=== PATIENT | female | born 1980 | race Caucasian/White ===

== ENCOUNTER → 2017-09-12 | Outpatient (REF) | payer OTHER ==
[2017-09-12 13:28] LABS: BASO # 0.1 10^3/uL (0.0-0.2); BASO % 1.2 % (0.0-1.0); EOS % 0.8 % (0.0-3.0); HEMATOCRIT 37.5 % (36.0-47.0); HEMOGLOBIN 12.2 g/dl (12.0-15.5); IMMATURE GRANULOCYTE % 0.2 % (0-3.0); LYMPH % 42.3 % (24.0-44.0); MEAN CORPUSCULAR HGB CONC 32.5 g/dl (32.0-36.5); MEAN CORPUSCULAR VOLUME 89.3 fl (80.0-96.0); MONO # 0.3 10^3/uL (0.0-0.8); NEUTROPHILS # 2.4 10^3/uL (1.8-7.7); NEUTROPHILS % 49.5 % (36.0-66.0); PLATELET COUNT, AUTOMATED 259 10^3/uL (150-450); RED CELL DISTRIBUTION WIDTH 12.1 % (11.5-14.5); WHITE BLOOD COUNT 4.8 10^3/uL (4.0-10.0)
[2017-09-12 13:46] LABS: FOLATE 9.5 NG/ML; VITAMIN B12 LEVEL 596 PG/ML
[2017-09-12 13:51] LABS: ALBUMIN 3.9 GM/DL (3.2-5.2); ALBUMIN/GLOBULIN RATIO 1.22 (1.00-1.93); ALKALINE PHOSPHATASE 56 U/L (45-117); ALT/SGPT 24 U/L (12-78); ANION GAP 5 MEQ/L (8-16); AST/SGOT 15 U/L (7-37); BLOOD UREA NITROGEN 12 MG/DL (7-18); CALCIUM LEVEL 8.8 MG/DL (8.5-10.1); CARBON DIOXIDE LEVEL 26 MEQ/L (21-32); CHLORIDE LEVEL 110 MEQ/L (98-107); CREATININE FOR GFR 0.86 MG/DL (0.55-1.30); GLOMERULAR FILTRATION RATE > 60.0 (>60); GLUCOSE, FASTING 84 MG/DL (70-100); POTASSIUM SERUM 4.2 MEQ/L (3.5-5.1); RHEUMATOID FACTOR QUANT < 10.0 IU/ML (<15.0); SODIUM LEVEL 141 MEQ/L (136-145); TOTAL PROTEIN 7.1 GM/DL (6.4-8.2)
[2017-09-12 14:14] LABS: ERYTHROCYTE SEDIMENTATION RATE 6 mm/hr (0-20)
[2017-09-12 14:29] LABS: ESTIMATED AVERAGE GLUCOSE 108 MG/DL (60-110); HEMOGLOBIN A1c 5.4 %
[2017-09-13 11:34] LABS: ALBUMIN 4.43 GM/DL (3.29-5.55); ALBUMIN % 62.4 % (55.8-66.1); ALPHA-1-GLOBULIN % 5.2 % (2.9-4.9); ALPHA-1-GLOBULINS 0.37 GM/DL (0.17-0.41); ALPHA-2-GLOBULINS 0.64 GM/DL (0.42-0.99); BETA-1-GLOBULINS 0.47 GM/DL (0.28-0.60); BETA-1-GLOBULINS % 6.6 % (4.7-7.2); BETA-2-GLOBULINS 0.28 GM/DL (0.19-0.55); BETA-2-GLOBULINS % 3.9 % (3.2-6.5); GAMMA GLOBULIN % 12.9 % (11.1-18.8); GAMMA GLOBULINS 0.92 GM/DL (0.65-1.58)
== END ==
LOC: M LABNEURO 09:06
DX: F09 Unspecified mental disorder due to known physiological condition (principal)

== ENCOUNTER 2018-05-21 04:59 | Day surgery (SDC) | payer OTHER ==
[~2018-05-21] VITALS: Ht 175.3 cm; Wt 84.1 kg
[2018-05-21] VITALS (8 sets, daily range): BP systolic 101–115; BP diastolic 57–71
[2018-05-21] MEDS ORDERED: NS 1,000 ML IV SCH (05:09)
[2018-05-21] MEDS ORDERED: EPIP0.3I2 INJ (05:53)
[2018-05-21] MEDS ORDERED: BUPIVACAINE HCL 0.25% 30 ML VIAL As Ordered ONE (06:21)
[2018-05-21] MEDS ORDERED: ROCURONIUM BROMIDE 50 MG/5 ML VIAL As Ordered ONE (06:28)
[2018-05-21] MEDS ORDERED: PROPOFOL 200 MG/20 ML VIAL As Ordered ONE (06:28)
[2018-05-21] MEDS ORDERED: MIDAZOLAM INJ 2 MG/2 ML VIAL (J2250) As Ordered ONE (06:28)
[2018-05-21] MEDS ORDERED: LIDOCAINE 2% INJ 100 MG/5 ML SDV (FOR ANES.) As Ordered ONE (06:28)
[2018-05-21] MEDS ORDERED: fentaNYL 250 MCG/5 ML INJECTION (J3010) As Ordered ONE (06:28)
[2018-05-21] MEDS ORDERED: metroNIDAZOLE/NACL 500MG(5MG/ML)100 ML BAG (S0030) As Ordered ONE (06:45)
[2018-05-21] MEDS ORDERED: ONDANSETRON 4MG/2ML VIAL (J2405) As Ordered ONE (07:18)
[2018-05-21] MEDS ORDERED: dexameTHASONE 4 MG/ML 1ML VIAL (J1100) As Ordered ONE (07:19)
[2018-05-21] MEDS ORDERED: KETOROLAC 60 MG/2 ML VIAL (J1885) As Ordered ONE (07:19)
[2018-05-21] MEDS ORDERED: NEOSTIGMINE 10 MG/10 ML VIAL (J2710) As Ordered ONE (07:46)
[2018-05-21] MEDS ORDERED: GLYCOPYRROLATE INJ 0.2 MG/ML 2 ML VIAL As Ordered ONE (07:46)
[2018-05-21] MEDS ORDERED: fentaNYL 100 MCG/2 ML INJECTION (J3010) As Ordered ONE (08:40)
[2018-05-21] MEDS: fentaNYL 100 MCG/2 ML INJECTION (J3010) IV PRN ×4 (08:41→09:10)
[2018-05-21] MEDS ORDERED: LR 1,000 ML IV SCH (08:45)
[2018-05-21] MEDS ORDERED: PERCOCET 5MG/325MG TAB PO PRN (08:45)
[2018-05-21] MEDS ORDERED: METOCLOPRAMIDE INJ 10MG/2ML VIAL (J2765) IV PRN (08:45)
[2018-05-21] MEDS ORDERED: ONDANSETRON 4MG/2ML VIAL (J2405) IV PRN (08:45)
[2018-05-21] MEDS ORDERED: ACETAMINOPHEN TAB 650MG DOSE (2X325MG) PO PRN (09:00)
[2018-05-21] MEDS: MORPHINE 4 MG/ML 1ML VIAL/SYRINGE (J2270) IV PRN ×2 (10:58→18:54)
[2018-05-21] MEDS: LR 1,000 ML IV SCH ×2 (13:00→16:30)
[2018-05-21] MEDS: IBUPROFEN 600 MG TAB PO PRN (15:23)
[2018-05-21] MEDS: NORCO, ANEXSIA 5/325MG TABLET (HYDROcodone/ACETAMINOPHEN) PO PRN (15:24)
[2018-05-22] VITALS: BP 104/57
[2018-05-22] MEDS: NORCO, ANEXSIA 5/325MG TABLET (HYDROcodone/ACETAMINOPHEN) PO PRN ×2 (00:18→07:44)
[2018-05-22 04:00] VITALS: BP 97/54
[2018-05-22 08:24] VITALS: BP 107/69
[2018-05-22] MEDS: IBUPROFEN 600 MG TAB PO PRN (09:37)
--- NOTE | 2018-05-22 15:18 | RO ---
DATE OF PROCEDURE: 05/21/2018 PREOPERATIVE DIAGNOSIS: Acute appendicitis. POSTOPERATIVE DIAGNOSIS: Acute appendicitis. PROCEDURE PERFORMED: Laparoscopic appendectomy. SURGEON: Dr. Verdugo ANESTHESIA: General. INDICATIONS FOR PROCEDURE: The patient presented to the emergency department with a 1-day history of worsening lower abdominal pain. She also reported some urinary frequency. In the emergency department, she was found to have moderate to marked tenderness in the lower abdomen in the suprapubic region just to the right of the midline. A CT scan had been done at [facility], which showed an inflamed appendix. She is now for laparoscopic appendectomy. OPERATIVE PROCEDURE: The patient was placed under general endotracheal anesthesia. The patient's abdomen was prepped and draped in a sterile fashion. 0.25% Marcaine was infiltrated at the trocar sites as needed. A short supraumbilical midline incision was made and deepened through the fascia under direct vision. The peritoneum was opened bluntly and a John cannula was inserted. The abdomen was insufflated with carbon dioxide gas. The laparoscope was inserted. Initial examination showed a normal-appearing liver and gallbladder. Visualized loops of the small large bowel appeared normal. The patient was tilted to a Trendelenburg position. A 5 mm trocar was placed low in the midline and a second 5 mm trocar was placed in the left lower quadrant. Graspers were inserted. The terminal ileum was rolled to the left and the inflamed appendix was identified extending toward the pelvic brim posterior to the terminal ileum. The appendix was freed from the inflammatory attachments and grasped and elevated. The peritoneal attachments around the base of the appendix were divided using the hook cautery. The mesoappendix was from the appendix and stapled with a vascular load of the linear cutter 45. Two large bleeders were identified along the staple line and these were grasped and controlled with hemoclips. The area was irrigated and hemostasis was ensured. The final filmy attachments around the base of the appendix were divided and the base of the appendix was then stapled with a blue load of the 45 mm stapler. This appeared to give a nice closure with good hemostasis. The appendix was placed in an Endopouch. The pelvis and the right lower quadrant were then irrigated and inspected. Any spilled blood was removed by irrigation and the irrigation was then all removed. Final inspection revealed excellent hemostasis. The patient was returned to a flat position. The abdomen was deflated and the trocars were all removed. The appendix was recovered through the John site and sent for permanent pathology. The fascia at the John site was closed with interrupted simple sutures of #2-0 Vicryl. The skin incisions were closed with #5-0 Vicryl and Steri-Strips. Light dressings were applied. The patient was then awakened in the operating room, extubated and moved to the recovery room in stable condition. CANDELARIO
--- NOTE | 2018-05-22 17:52 | IPN ---
DATE: 05/22/2018 HISTORY: The patient is now 1 day postoperative from a laparoscopic appendectomy for acute appendicitis. She reports that she is doing well this morning. She has some expected discomfort, particularly at the umbilical trocar site. She has been tolerating a regular diet and has been able to ambulate without difficulty. Vital signs show that she has been afebrile with a stable pulse and blood pressure. Intake and output shows 3500 in yesterday with 930 recorded out. Her urine output is good so far today. PHYSICAL EXAMINATION: The patient is alert and appears fairly comfortable. Heart exam shows a regular rhythm. The lungs are clear. The abdomen is soft. Her light dressings are dry, and she has active bowel sounds. IMPRESSION: The patient is doing very well one day postoperative from laparoscopic appendectomy for acute appendicitis. PLAN: The patient will be discharged home today. We discussed pain medication, and she will can take [id number] acetaminophen or ibuprofen as needed and does not feel she needs any narcotic analgesics. She requires no additional antibiotics. She was encouraged to be up and ambulating and doing light activities but should avoid strenuous physical activity for 2 weeks. 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 She can take a diet as tolerated. I advised her that I would normally have her followup in a week to 10 days, but as she lives in the [facility], I will not require her to return for a postoperative visit. If there are any issues, she can call my office and we can try to address things over the phone. She can shower as desired and leave the Steri-Strips on to fall off on their own. CANDELARIO
== END 2018-05-22 10:08 | disposition home or self-care (01) ==
LOC: M ED 04:59 → M SDC 06:25 → M PED 09:21 → M SDC 05-22 10:08
PROVIDERS: ATTEND Surgery
DX: K35.890 Other acute appendicitis without perforation or gangrene (principal)
CPT/HCPCS: 44970; 88304; 93041; 96374; 96376; 99285; J1100; J1885; J2250; J2270; J2405; J2710; J3010

== ENCOUNTER → 2019-08-08 | Outpatient (CLI) | payer OTHER ==
[~2019-08-08] MED LIST: EPIP0.3I2 INJ
== END ==
LOC: M LABSMTC 13:37
PROVIDERS: ATTEND Family Medicine
DX: Z11.59 Encounter for screening for other viral diseases (principal); Z20.828 Contact with and (suspected) exposure to other viral communicable diseases
CPT/HCPCS: 87486; 87581; 87633; 87798; U0002